=== PATIENT | male | born 1955 | race African-American/Black ===

== ENCOUNTER 2020-06-08 15:28 | Emergency (ER) | payer OTHER ==
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
[2020-06-08] MEDS ORDERED: CYCLOBENZAPRINE 10 MG TAB PO ONE (19:47)
[2020-06-08] MEDS ORDERED: ACETAMINOPHEN 500 MG TAB PO ONE (19:47)
[2020-06-08 19:57] VITALS: BP 134/77
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
== END 2020-06-08 20:49 | disposition home or self-care (01) ==
LOC: ED 15:28
DX: S46.912A Strain of unspecified muscle, fascia and tendon at shoulder and upper arm level, left arm, initial encounter (principal); M62.838 Other muscle spasm; M62.830 Muscle spasm of back; G44.319 Acute post-traumatic headache, not intractable; I10 Essential (primary) hypertension; E11.9 Type 2 diabetes mellitus without complications; F17.200 Nicotine dependence, unspecified, uncomplicated; Z79.899 Other long term (current) drug therapy; V49.49XA Driver injured in collision with other motor vehicles in traffic accident, initial encounter; Y92.410 Unspecified street and highway as the place of occurrence of the external cause; Y93.89 Activity, other specified; Y99.8 Other external cause status
CPT/HCPCS: 70450; 72125